=== PATIENT | male | born 1950 | race Caucasian/White ===

== ENCOUNTER 2016-12-24 07:16 | Day surgery (SDC) | payer MEDICARE ==
--- NOTE | ~2016-12-24 | EGD ---
EGD REPORT [facility] [address] [place]. [id number] NAME: LISA CONKLIN : [birth year] STATUS : REG [facility]#: [id number] AGE: 66 ADM/REG DATE : 12/24/16 MR#: [id number] REPORT SERV DATE: 12/24/16 DICTATED BY: CAROLYNN BELTRÁN DATE: 12/24/16 REPORT STATUS : Draft [facility] BY: [facility] DATE: 12/24/16 [facility] Patient Name: Lisa Conklin. Date of : 1950 Attending MD: HUMBERTO BELTRÁN MD Procedure Date No Time: 12/24/2016 Procedure: Colonoscopy Indications: Screening in patient at increased risk: Colorectal cancer in brother 60 or older Referring MD: JEY RESENDIZ Medicines: See the Anesthesia note for documentation of the administered medications Complications: No immediate complications. Procedure: Pre-Anesthesia Assessment: - ASA Grade Assessment: II - A patient with mild systemic disease. - Prior to the procedure, a History and Physical was performed, and patient medications and allergies were reviewed. The patient's tolerance of previous anesthesia was also reviewed. The risks and benefits of the procedure and the sedation options and risks were discussed with the patient. All questions were answered, and informed consent was obtained. Prior Anticoagulants: The patient has taken aspirin, last dose was 1 day prior to procedure. After reviewing the risks and benefits, the patient was deemed in satisfactory condition to undergo the procedure. After I obtained informed consent, the scope was passed under direct vision. Throughout the procedure, the patient's blood pressure, pulse, and oxygen saturations were monitored continuously. The PCF [id number] was introduced through the anus and advanced to the cecum, identified by appendiceal orifice and ileocecal valve. The ileocecal valve, appendiceal orifice and rectum were photographed. The entire colon was examined. The colonoscopy was performed without difficulty. The patient tolerated the procedure well. The quality of the bowel preparation was inadequate. Findings: The perianal and digital rectal examinations were normal. Non-bleeding internal hemorrhoids were found during retroflexion and were Grade I (internal hemorrhoids that do not prolapse). No other significant abnormalities were identified in a careful examination of the remainder of the colon. EGD REPORT [address] [address] NAME: LISA CONKLIN : [birth year] STATUS : REG [facility]#: [id number] AGE: 66 ADM/REG DATE : 12/24/16 MR#: [id number] REPORT SERV DATE: 12/24/16 DICTATED BY: CAROLYNN BELTRÁN DATE: 12/24/16 REPORT STATUS : Draft TRANSCRIBED BY: [employer] DATE: 12/24/16 Inadequate prep Impression: - Preparation of the colon was inadequate. - Non-bleeding internal hemorrhoids. - Inadequate prep Recommendation: - Patient has a contact number available for emergencies. The signs and symptoms of potential delayed complications were discussed with the patient. Return to normal activities tomorrow. Written discharge instructions were provided to the patient. - Regular diet. - Discharge patient to home. - Continue present medications. - Repeat colonoscopy in 1 year for surveillance due to inadequate prep Procedure Code(s): --- Professional --- 81497, Colonoscopy, flexible, proximal to splenic flexure; diagnostic, with or without collection of specimen(s) by brushing or washing, with or without colon decompression (separate procedure) Diagnosis Code(s): --- Professional --- K64.0, First degree hemorrhoids Z12.11, Encounter for screening for malignant neoplasm of colon Z80.0, Family history of malignant neoplasm of digestive organs CPT copyright 2013 [employer]. All rights reserved. The codes documented in this report are preliminary and upon hand wrapper operator review may be revised to meet current compliance requirements. HUMBERTO BELTRÁN MD 12/24/2016 9:04 AM This report has been signed electronically. Number of Addenda: 0 Note Initiated On: 12/24/2016 8:39 AM Scope Withdrawal Time 0 hours 8 minutes 28 seconds [id number] [place] [id number]
[~2016-12-24 07:16] MED LIST: ASAB PO; COREG6 PO; NORCO1 TA2; OPANA ER20 MG PO; ZESTRIL10 MG PO; ZOCOR20 PO
== END 2016-12-24 23:59 | disposition home or self-care (01) ==
LOC: DMU 07:16
PROVIDERS: Internal Medicine Gastroenterology
PROC: 0DJD8ZZ Inspection of Lower Intestinal Tract, Via Natural or Artificial Opening Endoscopic (ICD-10-PCS; principal; 2016-12-24 09:00)
DX: Z12.11 Encounter for screening for malignant neoplasm of colon (principal); K64.0 First degree hemorrhoids; Z80.0 Family history of malignant neoplasm of digestive organs; I10 Essential (primary) hypertension; I71.9 Aortic aneurysm of unspecified site, without rupture; Z96.653 Presence of artificial knee joint, bilateral; Z98.890 Other specified postprocedural states; Z90.49 Acquired absence of other specified parts of digestive tract; Z87.442 Personal history of urinary calculi; K21.9 Gastro-esophageal reflux disease without esophagitis; E78.00 Pure hypercholesterolemia, unspecified; Z79.82 Long term (current) use of aspirin; Z79.891 Long term (current) use of opiate analgesic